=== PATIENT | female | born 1940 | race Caucasian/White ===

== ENCOUNTER 2021-01-04 05:25 | Day surgery (SDC) | payer MEDICARE, BC ==
[~2021-01-04] VITALS: Ht 157.5 cm; Wt 69.0 kg
[2021-01-04] VITALS (11 sets, daily range): BP systolic 103–156; BP diastolic 42–95; PULSE 51–66; TEMP 97.7–98.8
--- NOTE | 2021-01-04 06:34 | NUR ---
TO RM 1 AT 0543- CALL LIGHT IN REACH ALERT ORIENTED X3, VERBALIZED UNDERSTANDING AND SIGNED CONSENT.
[2021-01-04] MEDS ORDERED: NAPROSYN500 MG PO (06:50)
[2021-01-04] MEDS ORDERED: PRILOSEC 20MG20 MG PO (06:50)
[2021-01-04] MEDS ORDERED: HCTZ12.5TAB PO (06:50)
[2021-01-04] MEDS ORDERED: ASPIRIN E.C. 8181 MG PO (06:51)
[2021-01-04] MEDS ORDERED: LOPRESSOR 550 MG/TAB PO (06:51)
[2021-01-04] MEDS ORDERED: CALCIUM CARBON650 M2 PO (06:52)
[2021-01-04] MEDS ORDERED: ESTRADERM0.1 MG/24 TOP (06:54)
[2021-01-04] MEDS ORDERED: VITAMIN C500 MG PO (06:55)
[2021-01-04] MEDS ORDERED: PHARMASSURE ZIN50 MG PO (06:55)
[2021-01-04] MEDS ORDERED: [UNRECOGNIZED DRUG - OTHER] PO (06:56)
--- NOTE | 2021-01-04 13:00 | NUR ---
Patient alert and orietned, answers questions appropriately. See assessment. Abdomen soft, tender, non distended. Bowel sounds hypoactive x4 quads. No flatus. Lap sites x5 to abodmen with edges well approximated, no redness or drainage noted. Rodrigues catheter in place to dependent drainage, draining clear yellow urine. Post op exercises reviewed with patient, no c/o at this time.
[2021-01-04] MEDS ORDERED: NORCO 325 MG-51 TAB PO (17:17)
[2021-01-04] MEDS ORDERED: COLACE 100100 MG/CAP PO (17:17)
--- NOTE | 2021-01-04 20:25 | NUR ---
Pt. laying in bed at this time. Pt. is A&OX3, assessment complete. INT to lt. forearm patent. Abd. lap sites x5, edges well approximated. Pt. reports pain at a 3 on pain scale, pt. denies need for additional pain meds at this time. Pt. denies further needs, call light within reach.
[2021-01-05 01:10] VITALS: BP 101/48; PULSE 55; TEMP 98.6
[2021-01-05 04:13] VITALS: BP 128/64; PULSE 53; TEMP 98.5
[2021-01-05 07:02] LABS: BASO % 0.3 % (0.0-2.0); CALCIUM 8.2 mg/dL (8.4-10.2); CREATININE, serum 0.55 (0.52-1.25); EOS # 0.1 (0.0-0.7); GRAN # 4.7 (1.4-6.5); GRAN % 68.3 % (42.2-75.2); LYMPH # 1.4 (1.2-3.4); LYMPH % 20.1 % (20.0-51.0); MEAN CELL VOLUME 87 fl (80.0-100.0); MEAN CORPUSCULAR HEMOGLOBIN 27 pg (27.0-31.0); MEAN CORPUSCULAR HGB CONC 31 g/dl (33.0-37.0); MEAN PLATELET VOLUME 10.2 fl (7.4-10.4); MONO # 0.7 (0.1-0.6); MONO % 9.9 % (1.7-9.3); PLATELET COUNT 194 K/mm3 (130-400); POTASSIUM 3.3 mmol/L (3.4-5.0); RED BLOOD COUNT 3.66 M/mm3 (4.10-5.30); REDCELL DISTRIBUTION WIDTH-CV 14.1 % (11.5-14.5)
[2021-01-05 07:28] VITALS: BP 127/62; PULSE 61; TEMP 98.5
--- NOTE | 2021-01-05 08:42 | NUR ---
Patient alert and oriented, answers questions appropriately. See assessment. Abdomen soft, tender, non distended. Bowel sounds hyperactive x4 quads. No flatus. No bowel movement. Lap sites x5 to abdomen with edges well approximated, no redness or drainage noted. Rodrigues catheter removed early this a.m, awaiting void. C/o pain to abdomen 10/09. No other c/o at this time.
--- NOTE | 2021-01-05 10:27 | NUR ---
Initial vlsit; Patient thanked It Assistant for looking in on her and offering God's blessings.
--- NOTE | 2021-01-05 12:12 | NUR ---
Discharge instructions reviewed with patient, verbalized understanding. Discharged via wheelchair to auto/home with family at 1150.
== END 2021-01-05 11:50 | disposition home or self-care (01) ==
LOC: SDCO 05:25 → SURG 11:23 → SDCO 11:30
PROVIDERS: Urology
DX: N81.3 Complete uterovaginal prolapse (principal); N36.42 Intrinsic sphincter deficiency (ISD); R31.0 Gross hematuria; I10 Essential (primary) hypertension; K21.9 Gastro-esophageal reflux disease without esophagitis; G47.33 Obstructive sleep apnea (adult) (pediatric); Z79.899 Other long term (current) drug therapy; Z79.82 Long term (current) use of aspirin; Z85.3 Personal history of malignant neoplasm of breast; Z79.890 Hormone replacement therapy
CPT/HCPCS: OP; A4314; C1771; C1781; J0690; J1650; J1885; J2405; J2704; J3010; J7120